=== PATIENT | male | born 1960 | race Caucasian/White ===

== ENCOUNTER 2024-01-30 16:54 | Emergency (ER) | payer OTHER ==
[~2024-01-30] VITALS: Ht 182.9 cm; Wt 81.6 kg
[2024-01-30 18:37] VITALS: BP 165/99; TEMP 99
[2024-01-30] MEDS ORDERED: CLINDAMYCIN HCL 150 MG CAPSULE ONE (19:05)
[2024-01-30] MEDS ORDERED: CLIN300C12 PO (19:06)
[2024-01-30] MEDS: CLINDAMYCIN HCL 150 MG CAPSULE PO ONE (19:13)
[2024-01-30 19:15] VITALS: O2SAT 100
== END 2024-01-30 19:16 | disposition home or self-care (01) ==
LOC: ER 16:54
DX: L03.114 Cellulitis of left upper limb (principal)